=== PATIENT | female | born 1955 | race Caucasian/White ===

== ENCOUNTER 2017-03-04 10:01 | Emergency (ER) | payer BC ==
[2017-03-04 10:15] VITALS: BP 122/76
--- NOTE | 2017-03-04 12:01 | UC ---
Skin Complaint HPI - HPI Summary HPI Summary: Patient presents 2 weeks s/p suture removal from the left base of the thumb. Today she arrives with CC of abnormal drainage from the area. D/t her job, she must keep the area covered and she has not left it open to air. The wound has some yellow discharge at the site of the incision. There is no surrounding erythema, warmth or streaking and patient is afebrile. She is otherwise healthy , takes no medications and has no other complaints. - History of Current Complaint Chief Complaint: UCSkin Time Seen by Provider: 03/04/17 10:04 Stated Complaint: SOFT TISSUE COMPLAINT Hx Obtained From: Patient ?: No Onset/Duration: Sudden Onset Skin Exposure Onset/Duration: Minutes Ago Timing: Constant Onset Severity: Mild Current Severity: Mild Pain Intensity: 2 Pain Scale Used: 0-10 Numeric Location: Hand (Left) Aggravating: Nothing Alleviating: Nothing Associated Signs & Symptoms: Positive: Drainage Related History: Trauma - Allergy/Home Medications Allergies/Adverse Reactions: Allergies Allergy/AdvReac Type Severity Reaction Status Date / Time No Known Allergies Allergy Verified 12/16/15 18:27 Review of Systems Skin: Other - yellow drainage from previous laceration site ENT: Negative Respiratory: Negative Cardiovascular: Negative Motor: Negative Neurovascular: Decreased Sensation Psychological: Negative All Other Systems Reviewed And Are Negative: Yes PMH/Surg Hx/FS Hx/Imm Hx Previously Healthy: Yes - Surgical History Surgical History: Yes Surgery Procedure, Year, and Place: wisdom teeth extraction - Family History Known Family History: Positive: Other - NONCONTIRBUTORY - Social History Occupation: Employed Full-time Lives: With Family Alcohol Use: Daily Substance Use Type: None Smoking Status (MU): Never Smoked Tobacco Physical Exam Triage Information Reviewed: Yes Appearance: Well-Appearing, No Pain Distress, Well-Nourished Vital Signs: Initial Vital Signs Temp 98.4 F 03/04/17 10:03 Pulse 68 03/04/17 10:03 Resp 18 03/04/17 10:03 BP 122/76 03/04/17 10:03 Pulse Ox 100 03/04/17 10:03 Vital Signs Reviewed: Yes Eye Exam: Normal Eyes: Positive: Conjunctiva Clear Neck exam: Normal Neck: Positive: Supple, Nontender, No Lymphadenopathy Respiratory Exam: Normal Respiratory: Positive: Chest non-tender, Lungs clear Cardiovascular Exam: Normal Cardiovascular: Positive: RRR Musculoskeletal Exam: Normal Musculoskeletal: Positive: Strength Intact Neurological Exam: Normal Neurological: Positive: Alert Psychological: Positive: Normal Response To Family, Age Appropriate Behavior Skin: Positive: Other - yellow drainage from previous laceration site Course/Dx - Course Course Of Treatment: Patient presents with yellow drainage from previous laceration site over base of thumb. The area is without erythema, warmth or other signs of infection. She has not been leaving it open to air, and instead has been placing steri strips with a bandage over the area 24 hours per day. It was advised to patient to keep it covered only while working, but then leave open to air as it will heal. Antibiotics are not recommended. Patient made aware of results and plan and is OK with discharge. Medications reviewed with patient. - Differential Diagnoses - Skin Complaint Differential Diagnoses: Abscess, Cellulitis, Impetigo, Local Allergic Reaction - Diagnoses Provider Diagnoses: Local Incision Infection Discharge - Discharge Plan Condition: Stable Disposition: HOME Patient Education Materials: Finger Laceration (ED) Referrals: Sloan Stone DO [Primary Care Provider] - Additional Instructions: Follow up with PCP as needed Leave wound open to air as much as possible Return for any worsening symptoms or signs of infection
== END 2017-03-04 10:34 | disposition home or self-care (01) ==
LOC: UCEAST 10:01
DX: T81.4XXA Infection following a procedure, initial encounter (principal); L08.9 Local infection of the skin and subcutaneous tissue, unspecified
CPT/HCPCS: 99211; G0463